=== PATIENT | female | born 1990 | race Caucasian/White ===

== ENCOUNTER 2018-12-26 08:04 | Emergency (ER) | payer OTHER ==
[2018-12-26 08:41] LABS: PLATELET COUNT 371 10^3/uL (150-400)
[2018-12-26] MEDS ORDERED: NS 1,000 ML IV ONE (08:48)
[2018-12-26] MEDS ORDERED: KETOROLAC 30 MG/1 ML SDV IVP ONE (08:48)
--- NOTE | 2018-12-26 08:48 | EDPHY ---
HPI/HX/ROS/PE/MDM Narrative: CHIEF COMPLAINT: Abdominal pain HPI: The patient is a 28 y/o female arriving with her for evaluation of acutely worsening low abdominal pain this morning in the setting of 20lbs of unintentional weight loss in the last 6-7 weeks. Since weight loss began, she's been having diffuse abdominal discomfort, acid reflux, appetite loss, and nausea. She was evaluated by her PCP for these symptoms about 10 days ago. Lab work at that time showed hypothyroidism, but was otherwise normal. PCP recommended treating as possible ulcer with Prilosec, which she has been taking daily since then. This improved her reflux symptoms, but she has continued to have lower abdominal discomfort and appetite loss. Today she had a bowel movement and had extreme pain in both lower quadrants that has since localized to her RLQ. Pain is sharp in quality. She's had looser stools, but denies black or bloody stools. No fever. She occasionally feels LLQ pain while urinating. No history of ovarian cysts, abdominal surgeries, or similar symptoms previously. She is expecting her menstrual period in the next few days. REVIEW OF SYSTEMS: A comprehensive 10 system review of systems is otherwise negative aside from elements mentioned in the history of present illness. PMH: Asthma, hypothyroidism SOCIAL HISTORY: Works with [employer]. Certified music therapist. at bedside. PCP: Dr. Davis. PHYSICAL EXAM: General:Patient is alert, in no acute distress. ENT:Eyes are normal to inspection. ENT inspection normal. Neck: Normal inspection. Full range of motion. Respiratory:No respiratory distress. Breath sounds normal bilaterally. Cardiovascular: Regular rate and rhythm. Strong peripheral pulses. Normal cap refill. Abdomen: The abdomen is diffusely tender, severe tenderness in RLQ to palpation. Back: Normal to inspection. No tenderness to palpation. Skin: Normal color. No rash. Warm and dry. Extremities: Normal appearance. Full range of motion. Neuro: Oriented x3. Normal motor function. Normal sensory function. ED Course: This is a healthy 28 y/o female with a 6-7-week history of abdominal discomfort , nausea, and an unintentional 20-pound weight loss who presents with acutely worsening lower abdominal pain now localized to her RLQ. She has diffuse abdominal tenderness that is severe in the RLQ on exam. Symptoms may represent ovarian etiology vs. appendicitis. Plan for IV, labs, UA, abdominal US, and symptomatic management. 1L IV NS and 30mg IV Toradol ordered. Abdominal US: complex left ovarian cyst, some free fluid in pelvis, no ovarian torsion, indeterminate for appendicitis. 0945: Reassessed patient and discussed findings. Recommended abdominal CT for further evaluation, which she agrees to. CT does not show acute appendicitis. Reassessed patient and discussed findings. Free fluid on imaging and location of pain could suggest ruptured ovarian cyst. Recommended follow up with GI and OBGYN, which she agrees to. She has declined pain medication. Standard care instructions provided and return precautions discussed. She is comfortable with plan for discharge. - Data Points Imaging Results: Imaging Impressions Abdomen Ultrasound 12/26/18 08:48 Impression: Indeterminate study for appendicitis as a normal nor an abnormal appendix is visualized. Moderate free fluid in the pelvis. Consider CT for further evaluation as clinically indicated. Results called and discussed with Keron Nguyen MD on 12/26/2018 at 9:51 a.m. Pelvic/Renal Ultrasound 12/26/18 08:48 Impression: Complex cyst left ovary measuring 2.7 cm. Recommend follow-up ultrasound in 6-8 weeks. Moderate free fluid in the pelvis. IUD well-positioned in the endometrial cavity. Results called and discussed with Keron Nguyen MD at 12/26/2018 9:50. Abdomen CT 12/26/18 09:46 Impression: No CT findings for appendicitis. Mild free fluid in the right lower quadrant and pelvis. Complex cyst left ovary, recommend follow up ultrasound in 6-8 weeks. Results called and discussed with Keron Nguyen MD on 12/26/2018 at 10:19 a.m. Imaging: Discussed imaging studies w/ automobile radiator mechanic Radiologist, I viewed and interpreted images myself Laboratory Results: Laboratory Results 12/26/18 08:30 12/26/18 08:30 12/26/18 12/26/18 12/26/18 08:30 08:30 08:30 WBC 7.45 10^3/uL 10^3/uL (3.80-9.50) RBC 5.05 10^6/uL 10^6/uL (4.18-5.33) Hgb 15.2 g/dL g/dL (12.6-16.3) Hct 45.0 % % (38.0-47.0) MCV 89.1 fL fL (81.5-99.8) MCH 30.1 pg pg (27.9-34.1) MCHC 33.8 g/dL g/dL (32.4-36.7) RDW 13.0 % % (11.5-15.2) Plt Count 371 10^3/uL 10^3/uL (150-400) MPV 8.9 fL fL (8.7-11.7) Neut % (Auto) 54.9 % % (39.3-74.2) Lymph % (Auto) 27.1 % % (15.0-45.0) [place] % (Auto) 7.4 % % (4.5-13.0) Eos % (Auto) 8.9 % H % (0.6-7.6) Baso % (Auto) 1.6 % % (0.3-1.7) Nucleat RBC Rel Count 0.0 % % (0.0-0.2) Absolute Neuts (auto) 4.09 10^3/uL 10^3/uL (1.70-6.50) Absolute Lymphs (auto) 2.02 10^3/uL 10^3/uL (1.00-3.00) Absolute Monos (auto) 0.55 10^3/uL 10^3/uL (0.30-0.80) Absolute Eos (auto) 0.66 10^3/uL H 10^3/uL (0.03-0.40) Absolute Basos (auto) 0.12 10^3/uL H 10^3/uL (0.02-0.10) Absolute Nucleated RBC 0.00 10^3/uL 10^3/uL (0-0.01) Immature Gran % 0.1 % % (0.0-1.1) Immature Gran # 0.01 10^3/uL 10^3/uL (0.00-0.10) Sodium 137 mEq/L mEq/L (135-145) Potassium 3.6 mEq/L mEq/L (3.5-5.2) Chloride 103 mEq/L mEq/L (97-110) Carbon Dioxide 24 mEq/l mEq/l (22-31) Anion Gap 10 mEq/L mEq/L (6-14) BUN 10 mg/dL mg/dL (7-23) Creatinine 0.7 mg/dL mg/dL (0.6-1.0) Estimated GFR > 60 Glucose 96 mg/dL mg/dL (70-100) Calcium 9.9 mg/dL mg/dL (8.5-10.4) Beta HCG, Qual NEGATIVE Urine Color Urine Appearance Urine pH Ur Specific [place] Urine Protein Urine Ketones Urine Blood Urine Nitrate Urine Bilirubin Urine Urobilinogen Ur Leukocyte Esterase Urine RBC Urine WBC Ur Epithelial Cells Urine Bacteria Urine Mucus Urine Glucose 12/26/18 08:15 WBC RBC Hgb Hct MCV MCH MCHC RDW Plt Count MPV Neut % (Auto) Lymph % (Auto) [place] % (Auto) Eos % (Auto) Baso % (Auto) Nucleat RBC Rel Count Absolute Neuts (auto) Absolute Lymphs (auto) Absolute Monos (auto) Absolute Eos (auto) Absolute Basos (auto) Absolute Nucleated RBC Immature Gran % Immature Gran # Sodium Potassium Chloride Carbon Dioxide Anion Gap BUN Creatinine Estimated GFR Glucose Calcium Beta HCG, Qual Urine Color YELLOW Urine Appearance HAZY Urine pH 6.0 (5.0-7.5) Ur Specific [place] 1.021 (1.002-1.030) Urine Protein NEGATIVE (NEGATIVE) Urine Ketones 2+ H (NEGATIVE) Urine Blood 3+ H (NEGATIVE) Urine Nitrate NEGATIVE (NEGATIVE) Urine Bilirubin NEGATIVE (NEGATIVE) Urine Urobilinogen NEGATIVE EU EU (0.2-1.0) Ur Leukocyte Esterase 2+ H (NEGATIVE) Urine RBC 3-5 /hpf H /hpf (0-3) Urine WBC 5-10 /hpf H /hpf (0-3) Ur Epithelial Cells 1+ /lpf /lpf (NONE-1+) Urine Bacteria TRACE /hpf H /hpf (NONE SEEN) Urine Mucus TRACE /lpf /lpf (NONE-1+) Urine Glucose NEGATIVE (NEGATIVE) Medications Given: Discontinued Medications Sodium Chloride (Ns) 1,000 mls @ 0 mls/hr IV EDNOW ONE; Wide Open PRN Reason: Protocol Stop: 12/26/18 08:49 Last Admin: 12/26/18 08:55 Dose: 1,000 mls Ketorolac Tromethamine (Toradol) 30 mg IVP EDNOW ONE Stop: 12/26/18 08:49 Last Admin: 12/26/18 08:55 Dose: 30 mg General Time Seen by Provider: 12/26/18 08:26 Initial Vital Signs: Initial Vital Signs Temperature (C) 36.7 C 12/26/18 08:10 Heart Rate 107 H 12/26/18 08:10 Respiratory Rate 16 12/26/18 08:10 Blood Pressure 148/109 H 12/26/18 08:10 O2 Sat (%) 99 12/26/18 08:10 O2 Delivery Mode Room Air Allergies/Adverse Reactions: No Known Allergies Allergy (Unverified 12/26/18 08:09) Home Medications: Medication Instructions Recorded Breo Ellipta 100-25 Mcg INH 12/26/18 Prilosec 12/26/18 Ventolin Hfa 12/26/18 Departure - Departure Disposition: Home, Routine, Self-Care Clinical Impression: Complex cyst of left ovary Abdominal pain Qualifiers: Abdominal location: right lower quadrant Qualified Code(s): R10.31 - Right lower quadrant pain Condition: Good Instructions: Ovarian Cyst (ED), Abdominal Pain (ED) Additional Instructions: 1. You will need a repeat ultrasound in 6-8 weeks for reevaluation of your left ovarian cyst. Contact your OBGYN to arrange this. 2. Follow up with supervisor waterproofing in the next week for reevaluation. I recommend calling today to schedule this appointment. 3. Return to the ED for worsening of condition. Referrals: Gopi Davis MD [Primary Care Provider] - As per Instructions Sarah Woods MD [Medical Doctor] - As per Instructions Pratibha Toro MD [Medical Doctor] - As per Instructions Report Scribed for: Keron Nguyen Report Scribed by: Yael Umanzor Date of Report: 12/26/18 Time of Report: 08:51 Physician Review and Approval Statement: Portions of this note were transcribed by an ED scribe. I personally performed the history, physical exam, and medical decision making; and confirm the accuracy of the information in the transcribed note.
[2018-12-26] MEDS ORDERED: IOPAMIDOL (ISOVUE-300) 100 ML BTL ONE (09:52)
[2018-12-26 10:33] VITALS: BP 136/71
== END 2018-12-26 10:33 | disposition home or self-care (01) ==
DX: N83.202 Unspecified ovarian cyst, left side (principal); E86.9 Volume depletion, unspecified
CPT/HCPCS: 96374; J1885; Q9967

== ENCOUNTER → 2019-01-13 | Outpatient (CLI) | payer OTHER | LOC: CIMAGING 17:23 | PROVIDERS: ATTEND Family Medicine | DX: R10.11 Right upper quadrant pain (principal) | CPT/HCPCS: 76700-PO ==

== ENCOUNTER 2019-01-22 11:33 | Day surgery (SDC) | payer OTHER ==
--- NOTE | 2019-01-22 11:23 | POSTANESTH ---
Post Anesthetic Evaluation Cardiovascular Status: Normal, Stable Respiratory Status: Normal, Stable Level of Consciousness/Mental Status: Can Participate in Eval, Moderately Sleepy Pain Control: Adequate, Prn Tx Ordered Nausea/Vomiting Control: Adequate, Prn Tx Ordered Complications Possibly Related to Anesthesia: None Noted
--- NOTE | 2019-01-22 11:24 | PDANEPAE ---
ANE History of Present Illness 28 yo female with weight loss, anemia and nausea/abd pain for EGD/colonoscopy. 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 NAUSEA/REFLUX - Other Health History Other Health History: ANEMIA - Chronic Pain History Chronic Pain: Yes (GI) - Surgical History Prior Surgeries: WISDOM TEETH ANE Review of Systems Review of Systems: - Exercise capacity METS (RN): 4 METS - Systems Constitutional: Reports: malaise, weight loss EENMT: Reports: sore throat, other (secondary to post-nasal drip?) Respiratory: Reports: no symptoms Gastrointestinal: Reports: abdominal pain, nausea ANE Patient History - Allergies Allergies/Adverse Reactions: No Known Allergies Allergy (Unverified 12/26/18 08:09) - Home Medications Home Medications: ALBUTEROL SULFATE PRN 01/21/19 [Last Taken Unknown] Herbals/Supplements -Info Only DAILY 01/21/19 [Last Taken Unknown] Levothyroxine DAILY 01/21/19 [Last Taken Unknown] Loratadine-D 24Hr Tablet DAILY 01/21/19 [Last Taken Unknown] Nebulizer PRN 01/21/19 [Last Taken Unknown] - Anes Hx Anes Hx: no prior problems - Smoking Hx Smoking Status: Never smoked Marijuana use: Yes - Family Anes Hx Family Anes Hx: neg - N/A ANE Labs/Vital Signs - Vital Signs Vital Signs: reviewed preoperatively; see RN documention for details Height: 157.48 cm Weight: 48.534 kg ANE Physical Exam - Airway Neck exam: FROM Mallampati Score: Class 2 Mouth exam: normal dental/mouth exam - Pulmonary Pulmonary: clear to auscultation - Cardiovascular Cardiovascular: tachycardia - ASA Status ASA Status: II ANE Anesthesia Plan Anesthesia Plan: GA with mask
[2019-01-22] MEDS ORDERED: MIDAZOLAM 2 MG/2 ML VIAL IVP ONE (12:30)
[2019-01-22] MEDS ORDERED: LIDOCAINE 1% 2 ML INJ ID PRN (12:57)
[2019-01-22] MEDS ORDERED: LR 1,000 ML IV ONE (12:57)
--- NOTE | 2019-01-22 13:09 | PDGENHP ---
History & Physical Chief Complaint: epi pain rlq pain History of Present Illness: Nov 2018 with pain and weight loss Pertinent Past, Social, Family History: no tobnacco, no alcohol. asthma, anxiety. FHx - GM hypothyrodismz, great uncle with Crohn's Relevant Physical Exam: A+Ox3. CTA. S1S2. +BS, soft epi and rlq tenderness Cardiorespiratory Assessment: class 2
[2019-01-22] MEDS ORDERED: PROPOFOL/EMULSION 500 MG/50 ML BOTTLE IV ONE (13:18)
[2019-01-22] MEDS ORDERED: ALBUTEROL 3 ML DEYVIAL IH PRN (13:47)
[2019-01-22] MEDS ORDERED: LR 500 ML IV PRN (13:47)
[2019-01-22] MEDS ORDERED: DIAZEPAM 5 MG/ML 1 ML SYR IVP PRN (13:47)
[2019-01-22] MEDS ORDERED: ONDANSETRON 4 MG/2 ML VIAL IVP PRN (13:47)
--- NOTE | 2019-01-22 14:19 | GIREPORT ---
[facility] - Endoscopy Department Patient Name: Josue Zamarripa Procedure Date: 01/22/2019 1:19 PM Patient Type: Outpatient Attending MD/ ER Physician: Rodolfo Ludwig MD Procedure: Colonoscopy Indications: Clinically significant diarrhea of unexplained origin, Abnormal CT of t he GI tract Providers: Rodolfo Ludwig MD Referring MD: Gopi Davis MD Medicines: Propofol per Anesthesia = IV general with spont resps Complications: No immediate complications. Estimated blood loss: Minimal. Description of Procedure: After obtaining informed consent, the scope was passed under direct vis ion. Throughout the procedure, the patient's blood pressure, pulse, and oxyg en saturations were monitored continuously. The Colonoscope was introduced through the anus and advanced to the terminal ileum, with identificatio n of the appendiceal orifice and IC valve. The colonoscopy was performed wit hout difficulty. The patient tolerated the procedure well. The quality of th e bowel preparation was good. Findings: The digital rectal exam was normal. A localized area of mucosa in the terminal ileum was mildly erythematou s. Biopsies were taken with a cold forceps for histology. Estimated blood loss was minimal. A scattered area of mildly altered vascular and erythematous mucosa was found in the proximal transverse colon, in the ascending colon and in t he cecum. Biopsies were taken with a cold forceps for histology. Estimated blood loss was minimal. The exam was otherwise without abnormality. Estimated Blood Loss: Estimated blood loss was minimal. Post Op Diagnosis: - Erythematous mucosa in the terminal ileum. Biopsied. - Altered vascular and erythematous mucosa in the proximal transverse c olon, in the ascending colon and in the cecum. Biopsied. - The examination was otherwise normal. Recommendation: - Await pathology results. - My office will call with the pathology result with 5-7 days. If you h ave not heard from my office by 12-14, do not assume the pathology is deisi l, please call [phone] to get the pathology results. - Repeat colonoscopy at age 51 for screening purposes. - Patient has a contact number available for emergencies. The signs and symptoms of potential delayed complications were discussed with the pat ient. Return to normal activities tomorrow. Written discharge instructions we re provided to the patient. - Continue present medications. - Discharge patient to home (ambulatory). - Return to primary care physician as previously scheduled. - Return to GI clinic at appointment to be scheduled. - Thank you for allowing me to help in your patient's care. Do not hesi escobar to call with any questions. - See EGD for other recommendations Attending Participation: I personally performed the entire procedure. Vani Luis M.D Rodolfo Ludwig MD 01/22/2019 2:18:35 PM This report has been signed electronicallyMatthew MD Vani Number of Addenda: 0 Note Initiated On: 01/22/2019 1:19 PM Total Procedure Duration Time 0 hours 12 minutes 57 seconds [email or web address]
--- NOTE | 2019-01-22 15:07 | GIREPORT ---
[facility] - Endoscopy Department Patient Name: Josue Zamarripa Procedure Date: 01/22/2019 1:10 PM Patient Type: Outpatient Attending MD/ ER Physician: Rodolfo Ludwig MD Procedure: Upper GI endoscopy Indications: Epigastric abdominal pain Providers: Rodolfo Ludwig MD Referring MD: Gopi Davis MD Medicines: Propofol per Anesthesia = IV general with spont resps Complications: No immediate complications. Estimated blood loss: Minimal. Description of Procedure: After obtaining informed consent, the endoscope was passed under direct vision. Throughout the procedure, the patient's blood pressure, pulse, and oxygen saturations were monitored continuously. The Endoscope was intro duced through the mouth, and advanced to the third part of duodenum. The uppe r GI endoscopy was accomplished without difficulty. The patient tolerated th e procedure well. Findings: The examined esophagus was normal. The entire examined stomach was normal. A mild extrinsic deformity was found in the second portion of the duode num. The examined duodenum was normal. Biopsies for histology were taken wit h a cold forceps for evaluation of celiac disease. Estimated blood loss was minimal. The exam was otherwise without abnormality. Estimated Blood Loss: Estimated blood loss was minimal. Post Op Diagnosis: - Normal esophagus. - Normal stomach. - Duodenal deformity. Query SMA syndrome? - Normal examined duodenum. Biopsied. - The examination was otherwise normal. Recommendation: - Await pathology results. - My office will call with the pathology result with 5-7 days. If you h ave not heard from my office by 1214, do not assume the pathology is deisi l, please call [phone] to get the pathology results. - Use Protonix (pantoprazole) 40 mg PO BID. - Use Zantac (ranitidine) 300 mg PO at bedtime. - Do an upper GI series at appointment to be scheduled. Evaluate for possible SMA syndrome. I reviewed CT with radiologist today and with no oral contrast it is hard to determine if she has SMA syndrome and they recommended UGI series. - Perform a colonoscopy today. - Return to endoscopist after studies are complete. - Thank you for allowing me to help in your patient's care. Do not hesi escobar to call with any questions. Attending Participation: I personally performed the entire procedure. Vani Luis M.D Rodolfo Ludwig MD 01/22/2019 3:07:28 PM This report has been signed electronicallyMattjazw MD Vani Number of Addenda: 0 Note Initiated On: 01/22/2019 1:10 PM [email or web address]
[2019-01-22 15:25] VITALS: BP 120/81
== END 2019-01-22 15:40 | disposition home or self-care (01) ==
LOC: FSGY 11:33
PROVIDERS: ATTEND Internal Medicine Gastroenterology
PROC: 0DB98ZX Excision of Duodenum, Via Natural or Artificial Opening Endoscopic, Diagnostic (ICD-10-PCS; principal; 2019-01-22 12:45)
PROC: 0DBB8ZX Excision of Ileum, Via Natural or Artificial Opening Endoscopic, Diagnostic (ICD-10-PCS; principal; 2019-01-22 12:45)
PROC: 0DBE8ZX Excision of Large Intestine, Via Natural or Artificial Opening Endoscopic, Diagnostic (ICD-10-PCS; principal; 2019-01-22 12:45)
DX: R10.13 Epigastric pain (principal); E03.9 Hypothyroidism, unspecified
CPT/HCPCS: J2250; J2704

== ENCOUNTER → 2019-01-31 | Outpatient (CLI) | payer OTHER | LOC: FIMAGING 08:58 | PROVIDERS: ATTEND Internal Medicine Gastroenterology | DX: R10.13 Epigastric pain (principal); R63.4 Abnormal weight loss ==